=== PATIENT | female | born 1940 | race Caucasian/White ===

== ENCOUNTER 2016-06-15 19:15 | Inpatient (IN) | payer MEDICARE, MEDICAID ==
[~2016-06-15] VITALS: Ht 152.4 cm; Wt 74.3 kg
[~2016-06-15 19:15] MED LIST: AMOX-366 PO; HYDR-4003 PO; LISI10TA PO; METF500T7 PO; METO50TA3 PO; NAPR500T PO
[2016-06-15 19:24] VITALS: BP 132/73; PULSE 78; RESP 16; O2SAT 98
--- NOTE | 2016-06-15 21:43 | ED.REPORT ---
HPI-General Illness Date of Service Jun 15, 2016 ED Provider: Jarrod Barrera DO A 75 year old female with a history of hypertension, hyperthyroidism, osteoarthritis, right ureteral stent, diabetes, thyroid nodule, and pelvic cancer with hysterectomy among other medical concerns presents to the ED complaining of bleeding from the mouth. The pt drove to [place] today to see her oncologist. The bleeding began during the drive home and has continued since. She denies coughing up the blood, and states that she is spitting out saliva containing blood.The pt denies any pain. She has never experienced similar symptoms before. Nursing Notes Stated Complaint: BLEEDING FROM MOUTH Chief Complaint: General Complaint Nursing Notes Reviewed: Yes Allergies: Coded Allergies: No Known Allergies (Verified Allergy, Unknown, 06/15/16) Scheduled Amoxicillin/Clav K 875-125 mg (Augmentin 875-125 mg) 1 Each Tablet 1 TABLET PO BID Lisinopril (Lisinopril) 10 Mg Tablet 10 MG PO DAILY In Vietnamese please Metformin ER (Metformin ER) 500 Mg Tablet 500 MG PO DAILY Metoprolol Tartrate (Metoprolol Tartrate) 50 Mg Tablet 50 MG PO BID Scheduled PRN Hydrocodone-Acetaminophen 5-325 mg (Hydrocodone-Acetaminophen 5-325 mg) 1 Each Tablet 1 TABLET PO Q4H PRN PRN For Pain Naproxen (Naprosyn) 500 Mg Tablet 500 MG PO BID PRN PRN For Pain General Time Seen by MD: 21:42 Chief Complaint Other (Bleeding from mouth) Hx Obtained From: Patient, Daughter, Hospitality Job Titles Arrived By: Walk-in Sudden in Onset?: Yes Onset Occurred: 1 - 4 hours ago Symptom Duration: Since onset Recent Healthcare: Recent doctor visit, Recent hospitalization Similar Sx Previous: No Past Medical History Past Medical History Notes: PCP Dr. Franz Oncologist: Dr. Jillian Weber Past Medical History T2DM Thyroid nodule with hyperparathyroidism w/ parathyroid adenoma Hyperlipidemia HTN Osteoarthritis R hydroureter with right ureteral stent Constipation Hyperthyroid Reports: Hypertension Past Surgical History Reports: Hysterectomy Family History Noncontributory Smoking History Never Smoker Social History Alcohol Use: Denies alcohol use Other Social History: Good social support, Local resident Ambulatory Status Independent Review of Systems blood-streaked saliva Full Review of Systems Respiratory: Denies: Prod cough, bloody Cardiovascular: Denies: Chest pain GI: Denies: Abdominal pain, Nausea, Vomiting Musculoskeletal: Denies: Back pain, Neck pain Skin: Denies Rash Complete sys rev & neg: except as marked. Physical Exam Vital Signs Vital Signs Date Time Temp Pulse Resp B/P Pulse Ox O2 Delivery O2 Flow Rate FiO2 06/15/16 23:31 66 16 175/70 95 Room Air 06/15/16 19:24 36.0 78 16 132/73 98 Room Air Initial VS: Reviewed General/Constitutional: Awake, Alert blood-streaked saliva Head / Eyes: Atraumatic, Normocephalic, PERRL, EOMI ENT: Atraumatic, Airway patent, Mucous membranes moist Neck: Atraumatic, Supple, Full range of motion Respiratory / Chest: Atraumatic, Breath sounds NL, Breath sounds = bilat, No respiratory distress Cardiovascular: Heart rate NL, Regular rhythm, Heart sounds NL Abdomen: Atraumatic, Soft, Non-tender Back: Atraumatic, Full range of motion Upper Extremities Upper Extremity / MS: Atraumatic, Full range of motion Lower Extremity / Pelvis / MS: Atraumatic, Full range of motion Skin: Atraumatic, Color NL, No rash, Warm, Dry Neurologic: Oriented X3, Speech NL, No motor deficits, No sensory deficits Psychiatric: Affect NL, Mood NL Interpretation & Diagnostics Interpretation & Diagnostics: CT Pulmonary Angiogram: CONCLUSION: No CT evidence of pulmonary emboli. Enlarged left lobe of the thyroid gland which may be due to a goiter. There however is a mass in the superior mediastinum or adjacent lung and evidence for multiple masses in the liver worrisome for metastatic disease. Lab Results Interpretation Result Diagram: 06/15/16224206/15/163 Test 06/15/16 22:30 06/15/16 22:32 06/15/16 22:43 Hold [place] Top Tube Received (Received) Prothrombin Time 10.7sec (8.1-12.5) Prothromb Time International Ratio 1.00ratio D-Dimer 3.5mg/L (<0.50) White Blood Count 6.5th/mm3 (3.8-10.1) Red Blood Count 3.71mil/mm3 (3.90-5.20) Hemoglobin 8.2g/dL (12.0-15.6) Hematocrit 27.5% (35.0-46.0) Mean Corpuscular Volume 74.1fL (81-100) Mean Corpuscular Hemoglobin 22.1pg (27.0-35.0) Mean Corpuscular Hemoglobin Concent 29.8% (32.0-37.0) Red Cell Distribution Width 16.5% (12.3-15.4) Platelet Count 531bil/L (150-400) Neutrophils (%) (Auto) 58.6% (40-74) Lymphocytes (%) (Auto) 26.4% (14-46) Monocytes (%) (Auto) 11.9% (4-12) Eosinophils (%) (Auto) 2.2% (0-5) Basophils (%) (Auto) 0.6% (0-3) Sodium Level 132mEq/L (134-144) Potassium Level 3.6mEq/L (3.5-5.2) Chloride Level 94mEq/L (97-108) Carbon Dioxide Level 25mmol/L (18-29) Blood Urea Nitrogen 20mg/dL (8-27) Creatinine 0.89mg/dL (0.57-1.00) Estimat Glomerular Filtration Rate 88mL/min (>59) Glucose Level 132mg/dL (60-99) Calcium Level 11.5mg/dL (8.5-10.1) Total Bilirubin 0.4mg/dL (0.0-1.2) Aspartate Amino Transf (AST/SGOT) 24U/L (0-50) Alanine Aminotransferase (ALT/SGPT) 16U/L (0-32) Alkaline Phosphatase 231U/L (25-165) Total Protein 6.7g/dL (6.4-8.4) Albumin 3.1g/dL (3.4-5.0) Pulse Oximetry Interpretation Pulse Oximetry Interpretation: 98% on room air Pulse Oximetry: Pulse Ox normal X-Ray Chest Interpretation Chest Xray Interpretation: no acute findings Interpretation / Wet Read by: Wet read ED physician Re-Eval/Medical Decision Med Decision/Clinical Course I spoke with Dr. Jillian Weber, patient's oncologist, and discussed CT results. Dr. Weber recommends transfer to the [facility] to complete workup of hemoptysis, liver mets, and mediastinal mass. Subsequently spoke to Dr. Marisela Lopez of transfer center and patient is denied transfer because of a lack of bed availability at . Admission to [facility] hospitalist service is recommended. Consulted with Dr. Florentino who agrees that the patient should be admitted for bronchoscopy. Dr. Leo admits. Source of Hx: Old records, Family Time of Eval: 01:15 Re-Evaluation/Progress Note: Pt rechecked, who is stable. She is informed of her CT results and oncology consultation, as well as the need for transfer to . The pt understands and agrees with the plan. Time of Eval: 02:14 Patient Status: Condition improved Re-Evaluation/Progress Note: Pt rechecked, who is resting comfortably. She is informed of the plan for admission. The pt understands and agrees with the plan. All questions are addressed at this time. Consultation #1: Call Returned at: 01:00 Tuyere Fitter: Agrees with eval, Agrees with plan Note: Spoke with Dr. Jillian Weber, pt's oncologist, regarding pt's case. Dr. Weber recommends transfer to . Consultation #2: Call Returned at: 01:19 Tuyere Fitter: Agrees with eval, Agrees with plan, Accepts admit Note: Spoke with Transfer Center regarding pt's case. [facility] with review pt's case. Consultation #3: Call Returned at: 01:34 Tuyere Fitter: Agrees with eval, Agrees with plan Note: Spoke with Dr. Weber regarding pt's case. Dr. Weber recommends admission to hospitalist service of . Consultation #4: Call Returned at: 01:48 Tuyere Fitter: Agrees with eval, Agrees with plan Note: Spoke with Dr. Lopez regarding pt's case. There are no beds at , so Dr. Lopez recommends admission. Consultation #5: Referral / Consult Name: Kevin Leo MD Consulted With: Hospitalist Call Returned at: 02:02 Note: Spoke with Dr. Leo, hospitalist, regarding pt's case. Dr. Leo requests pulmonology consult. Consultation #6: Referral / Consult Name: Primitivo Florentino MD Consulted With: Recycle Driver Call Returned at: 02:08 Tuyere Fitter: Agrees with eval, Agrees with plan Note: Spoke with Dr. Florentino, food and beverage server, regarding pt's case. Dr. Paz agrees with the plan for admission. Counseled Regarding: Diagnosis, Lab results, Need for admission Discharge & Departure Primary Impression: Hemoptysis Additional Impression: Liver mass Disposition: ADMITTED TO HOSPITAL Discharge Condition All VS Reviewed: Yes Condition: Stable Referrals: Tony Franz MD (PCP) Ruben Attestation Portions of this note were transcribed by Lorrie Gr. I, Dr. Barrera personally performed the history, physical exam and medical decision-making; I reviewed and confirmed the accuracy of the information in the transcribed note. Signed by: Ruben Denis, 06/16/2016 and 0032. copies to: Tony Franz MD, Todd P DO Jun 15, 2016 21:42 Bladimir Nielson MD Jun 15, 2016 21:44 LORRIE GR Jun 15, 2016 22:52
[2016-06-15 22:49] LABS: BASOPHILS % (AUTO) 0.6 % (0-3); EOSINOPHILS % (AUTO) 2.2 % (0-5); MONOCYTES % (AUTO) 11.9 % (4-12); Mean Corpuscular Hemoglobin 22.1 pg (27.0-35.0); Mean Corpuscular Volume 74.1 fL (81-100); NEUTROPHILS % (AUTO) 58.6 % (40-74); Platelet Count 531 bil/L (150-400)
[2016-06-15 23:31] VITALS: BP 175/70; PULSE 66; RESP 16; O2SAT 95
[2016-06-16] VITALS (14 sets, daily range): BP systolic 141–208; BP diastolic 63–79; PULSE 68–93; RESP 16–20; O2SAT 94–97
[2016-06-16] MEDS ORDERED: Sodium Chloride LOK Flush 10 mL Syringe IVFLUSH SCH (00:30)
[2016-06-16] MEDS ORDERED: Polyethylene Glycol (PEG) 17 Gm Powder PO PRN (02:55)
[2016-06-16] MEDS ORDERED: Ondansetron 2 mg/mL 2 mL Inj IVPUSH PRN (02:55)
[2016-06-16] MEDS ORDERED: Alum-Mag Hydrox-Simeth 30 mL Suspension PO PRN (02:55)
[2016-06-16] MEDS ORDERED: Glucose 40% Oral Gel 15 Gm Tube PO PRN (04:00)
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
[2016-06-16] MEDS: Sodium Chloride LOK Flush 10 mL Syringe IVFLUSH SCH ×3 (05:11→16:30)
[2016-06-16 06:22] LABS: APPEARANCE,URINE HAZY (CLEAR,HAZY); COLOR,URINE STRAW (YELLOW); OCCULT BLOOD,URINE LARGE (NEGATIVE)
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
[2016-06-16] MEDS: Insulin LISPRO 300 Unit/3 mL Inj SUBQ SCH ×4 (08:00→22:00)
[2016-06-16 08:49] LABS: Mean Corpuscular Volume 74.4 fL (81-100)
[2016-06-16 09:16] LABS: Unsaturated Iron Binding 380.1 ug/dL
[2016-06-16] MEDS: Diltiazem CD 180 mg ER24 Capsule PO SCH (09:43)
[2016-06-16] MEDS: 0.9% Sodium Chloride 1,000 ML IV SCH ×2 (09:55→18:20)
--- NOTE | 2016-06-16 09:55 | DRSVH ---
PROCEDURE: X-RAY CHEST, TWO VIEWS ([id number]) INDICATIONS: hemoptysis TECHNIQUE: 2 views of the chest were acquired. COMPARISON: [facility], CR, XR CHEST 1VW (PORTABLE), 04/01/2016, 19:52. [facility], CR, XR CHEST 1VW (PORTABLE), 01/28/2016, 21:30. [facility], CR, CHEST 2VW, 12/23, 13:32. FINDINGS: Surgical changes and devices: None. Lungs and pleura: No pleural effusions or pneumothorax. Lungs are clear. Mediastinum: Mediastinal contours are normal. Heart size is normal. There is left paratracheal sof t tissue opacity unchanged from prior examination with contralateral deviation of the trachea in this patient with known enlarged left thyroid gland. Bones and chest wall: No suspicious bony abnormalities. Soft tissues appear unremarkable. Mild S-s haped curvature. IMPRESSION: No acute cardiopulmonary disease. Significant rightward deviation of the trachea, previ ously documented, due to large left thyroid mass like structure previously identified by CT, and ultr asound scanning. Reportedly this has been previously biopsied. Dictated by: Messi ALEGRE Interpreted: Vadim Connelly MD on 06/16/2016 at 9:54 Transcribed by: ALAYNA on 06/16/2016 at 9:55 Approved by: Vadim Connelly M.D. on 06/16/2016 at 16:16
--- NOTE | 2016-06-16 10:34 | DRSVH ---
PROCEDURE: CT ANGIO CHEST PULMONARY EMBOLISM ([id number]) INDICATIONS: hemoptysis, elevated ddimer TECHNIQUE: After the administration of intravenous contrast, 2 mm thick sections acquired from the pulmonary api vi to the posterior costophrenic angles. 3-dimensional maximum intensity projection (MIP) coronal a nd sagittal reformats were then acquired through the thorax. For radiation dose reduction, the follo wing was used: automated exposure control, adjustment of mA and/or kV according to patient size. COMPARISON: [facility], CT, CHEST WITH CONTRAST, 05/06/2008, 17:16. [facility], CT, CT ABD PELVIS W CON, 01/28/2016, 22:04. FINDINGS: Image quality: Excellent. Pulmonary arteries: Pulmonary arteries are normal in size, and demonstrate no intraluminal filling d efects to suggest central pulmonary embolism. Lungs and pleura: There is mild scarring at the right apex unchanged from the prior study. No acute a irspace opacities. No pleural effusion or pneumothorax. There is mild atelectasis at the right lung b ase. Mediastinum: Heart size is normal, without pericardial effusion. No mediastinal or hilar adenopathy . Thoracic aorta is normal in caliber and enhancement. A low density cystic lesion is present superi or to the aortic arch slightly decreased in size when compared with the study dated 05/06/08. Esophagu s is normal in caliber, without hiatal hernia. Bones and chest wall: No suspicious bony lesions. Ribs and thoracic spine appear intact throughout. The left thyroid gland is markedly enlarged. This is increased in size when compared with the thyroi d gland enlargement from 05/06/08. No axillary or supraclavicular adenopathy. Abdomen: The liver has a heterogeneous appearance with findings suspicious for multiple ill-defined m ass lesions. These findings are new when compared with the prior abdominal CT dated 01/28/16. IMPRESSION: 1. No acute pulmonary embolus. 2. Markedly enlarged left thyroid lobe, increased in size when compared with the prior study dated 04/01. 3. Stable superior mediastinal cyst. 4. Findings suspicious for multiple hepatic lesions which are new when compared with the study dated 01/28/16. Multiphase hepatic protocol CT is recommended to further characterize findings. Note: [facility] and the final report are concordant. Dictated by: Nayla Lundberg M.D. on 06/16/2016 at 10:24 Approved by: Nayla Lundberg M.D. on 06/16/2016 at 10:33
[2016-06-16] MEDS ORDERED: fentaNYL-PF 50 mCg/mL 2 mL Inj IVPUSH PRN (14:55)
--- NOTE | 2016-06-16 17:22 | PCM.PNMED ---
Subjective Date of Service Jun 16, 2016 Exam Vital Signs Vital Sign - Last Date Time Temp Pulse Resp B/P Pulse Ox O2 Delivery O2 Flow Rate FiO2 06/16/16 13:48 36.8 78 18 141/63 94 Room Air Intake and Output 06/15/16 06/15/16 06/16/16 Cumulative From/Thru 15:00 23:00 07:00 06/15/16 19:24 - 06/16/16 06:39 Intake Total 0 ml 0 ml Output Total 600 ml 600 ml Balance -600 ml -600 ml Intake Oral 0 ml 0 ml Output Urine Total 600 ml 600 ml # Bowel Movements 0 0 Lab and Diagnostics Result Diagram: 06/16/16 1645 06/16/16 0820 X-Rays, CTs and MRIs assembler 1st shift radiology read of the CT pulmonary angiography demonstrates: No CT evidence of pulmonary emboli. Enlarged left lobe of the thyroid gland which may be due to goiter. Mass in the superior mediastinum or adjacent lung and evidence of multiple masses in the liver worrisome for metastatic disease. 12-lead ECG Not performed this visit Assessment & Plan Pt was seen and examined. I agree with the admitting physicians assessment and plan of care as detailed below. Will see pt again in AM. 75-year-old obese female with significant ovarian cancer history (being actively followed by a Dr. Weber at ), hypertension who presents with an approximately 12 hour history of what is described as coughing up blood. # Hemoptysis, acute. Present on admission -Concerning for metastatic disease to the lungs versus primary lung source -NPO for now given plan to bronch -Plan is to proceed with bronchoscopy later today (patient is okay with intubation for the purposes of bronchoscopy)-INR 1.00, and platelets 531 * ER physician discussed case with patient's oncologist and [facility], and recommend attempt to transfer to should any complication occur during or after bronchoscopy -Given her drop in hemoglobin, she is receiving blood, and we will continue to follow those labs closely -Aside for malignancy, differential includes: Vasculitic process, AVM, mucosal tear secondary to trauma (patient does not note any significant history of cough or retch making this much less likely). PE ruled out on CT. -We will check QuantiFERON gold -We will hold her aspirin # Microcytic anemia, presents since December 2015 per review of our record. Present on admission -Microcytic nature may suggest deficiency of some kind versus slow chronic bleed -Transfusion as noted above, and we will follow labs closely -We will add an iron panel # Hypertension, acute on chronic. Present on admission -Perhaps related to stress of being in the hospital. -Likely made worse by her missing her medication doses yesterday -One-time dose of Enalaprilat 1.25mg IV given her elevated pressures. -We will continue her antihypertensives (diltiazem and lisinopril) -Continue to monitor vital signs closely # Incidental findings of upper mediastinal and multiple liver masslike abnormalities. Noted inpatient with significant reported radiation exposure, and significant history of cancer -These are concerning for metastatic disease versus potential primary source -Manage initially as noted above -We will check a serum AFP and hepatitis B core antibody -Consideration for checking a CEA (could be elevated in ovarian and/or lung cancer) -Please note, patient does have history of large left sided parathyroid adenoma which could potentially be what we are seeing on imaging -Also consideration for paraneoplastic syndrome given her elevated calcium ( though this is more likely related to her hyperparathyroidism) # Elevated alkaline phosphatase of unknown chronicity. Present on admission -Could be an indication of liver or bone metastases (please note the bony metastases were not reported on CT) -We will check a GGT # Mild hyponatremia and hypochloremia of unknown chronicity. 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 Weber Diabetes mellitus type II with diagnosis in 2008, not on insulin-we will hold metformin while she is hospitalized, and will add corrective insulin Paroxysmal A. fib, rate controlled-we will continue diltiazem Hyperparathyroidism with chronic hypercalcemia Left thyroid nodule/parathyroid adenoma History of falls-PT eval Obesity Hyperlipidemia PRN MEDICATIONS - Acetaminophen as needed for mild pain/fever/headache - Bowel regimen as needed - Antiemetic as needed Patient is admitted under inpatient status with expected length of stay greater than 2 midnights due to severity of presenting symptoms, risk of adverse event, and complexity of treatment plan. GI Prophylaxis: Not indicated VTE Mechanical Devices: Intermittant Pneumatic CD Resuscitation Status: Limited Interventions (no compressions or defibrillation. Patient okay with intubation for procedures.) Maeve Hicks DO Jun 16, 2016 17:22 Solomon Pérez MD Jun 17, 2016 13:36
[2016-06-16] MEDS: Pantoprazole 4 mg/mL 10 mL Inj IVPUSH SCH (18:21)
[2016-06-16] MEDS ORDERED: 0.9% Sodium Chloride 250 ML IV SCH (18:40)
--- NOTE | 2016-06-16 18:51 | CONS ---
[address] [address] CONSULTATION REPORT PATIENT: REJI VAZQUEZ : 1940 MR#: [id number] ADMIT: 06/16/2016 JOB ID: [id number] DATE OF SERVICE: 06/16/2016 INITIAL PULMONARY CONSULTATION NOTE: The patient is a 75-year-old woman seen in consultation at the request of Dr. Pérez for her hemoptysis. HISTORY OF PRESENT ILLNESS: We spoke to the patient with the assistance of family medicine physician, Dr. Maeve Hicks, who speaks the same language since an commercial lines account manager was not immediately available. The patient is a 75-year-old woman with a recently diagnosed right-sided ovarian cancer status post total abdominal hysterectomy and bilateral salpingo-oophorectomy with rectosigmoid resection done by the FEATHER SEPARATOR/ONC service at the [facility] on January 20, 2016. This was complicated by a postoperative infection in early January for which she had some form of debridement and IV antibiotic therapy. According to the patient and her daughter there was no additional radiation or chemotherapy administered, but the patient has had regular followup with FEATHER SEPARATOR/ONC at [facility]. She had an appointment with her oncologist yesterday at [facility] and on the way back from [place] felt a sudden metallic taste in her mouth and then proceeded to split something into a tissue. There was a small streak of pinkish-tinged spit in there. This happened one more time on the drive to [place] and she was anxious enough that she came into the emergency department at [facility]. Please note that she denies repeatedly "coughing up blood" and says she felt something in her mouth and only spat a dot of blood or so into a tissue. There were no clots, no bright red blood, no liquid blood. This happened a 3rd time while she was in the emergency department but has not recurred again since yesterday night from the emergency department, and all day today she has been completely fine. In fact, she denies any cough, shortness of breath, chest pain, palpitations. She denies any weight gain or weight loss, fevers, chills, sweats. She has been feeling more tired for the last six weeks. She denies any blood in her stools, vomiting blood, acid reflux, or heartburn. She does take aspirin 325 every other day. She has Naprosyn on her medication list but denies taking this for a while now because she has not had any joint pain. Her hemoglobin of note is down to 8.5 on this admission compared to 12 in January and it appears to slowly drift down. Similarly her MCV has gone down from 91 to 74 and over the last few months. PAST MEDICAL HISTORY: 1. Right-sided adenocarcinoma of the ovary diagnosed in 2016 status post total abdominal hysterectomy with bilateral salpingo-oophorectomy, lymph node dissection, and rectosigmoid dissection in December 2015 at the [facility] by gynecology/oncology. 2. Type 2 diabetes. 3. Paroxysmal atrial fibrillation. 4. Hypertension. 5. Hyperlipidemia. SOCIAL HISTORY: Never smoker. She is Chinese-speaking and has multiple family members are present at the bedside, primarily her daughter, granddaughter, and [id number]. REVIEW OF SYSTEMS: A 10-point review of systems is as in HPI and remaining is completely negative. PHYSICAL EXAMINATION: Vital signs reviewed. Temperature 36.8, pulse 78, respirations 18, BP 141/63, sats 94% on room air. General: Elderly woman sitting in bed, appears comfortable. Alert and oriented. Neck: No cervical lymphadenopathy. HEENT: Oral mucosa was examined in detail with the patient's dentures removed and I did not see any site of bleeding, epistaxis. Neck: No cervical lymphadenopathy. Chest: Clear to auscultation bilaterally. No wheezes or crackles. Heart: Regular rate, rhythm. No murmurs. Abdomen: Soft, nontender. No organomegaly. Extremities: No cyanosis, clubbing, or edema. Skin: No rashes. LABORATORY: Reviewed and notable for hemoglobin down to 8 from previous hemoglobin as high as 12.6 in December and 9.5 in January also of note, MCV is down significantly to 74 from 91 in December. IMAGING: Imaging of the chest: CT angiography shows no PE. There is a significantly enlarged left thyroid lobe that is slightly increased in size compared to April 2008, which the patient is aware of. Possibility of multiple hepatic lesions according to the radiologist's report; these are concerning for metastatic disease. There is an area in the right apex with atelectasis/scarring that is also relatively unchanged compared to 2008. Overall there are really no new findings in the lungs compared to 2009 that would explain or be associated with hemoptysis and I see no evidence of endobronchial tumor or obstruction. ASSESSMENT: 1. Spitting up blood-please note the patient is not having hemoptysis. 2. Anemia-microcytic. 3. Known right-sided adenocarcinoma of the ovary status post resection in December 2015. RECOMMENDATIONS: I am also concerned that this patient is having a GI bleed. There also appears to be a question of hepatic metastases. We do not have any records yet from the [facility] and I have requested these. Please note that the patient's history really does not suggest hemoptysis and in fact does not even suggest a GI bleed based on her symptoms alone. I am more concerned about the hemoglobin dropping to 8 from 12 over the course of 4-5 months with the new microcytosis. This is more concerning for a GI source of bleeding. One cannot lose this much blood through the lungs without showing a clear manifestation on chest CT or having symptoms such as hypoxemia, shortness of breath. Hemorrhage in the lungs would result in from oxygenation issues well before you could see a drop in hemoglobin. I did recommend to the primary team that they communicate with GI. Since this does not appear to be an acute bleed we do have the option of pursuing an outpatient workup, but I would defer that to the performance improvement director ironworker helper shop. I did recommend getting a stool guaiac and putting the patient on a PPI and stopping her aspirin in the meantime. I am going to sign off at this point. I have no additional recommendations unless the patient starts having any pulmonary symptoms of concern. Please contact me if that happens.
--- NOTE | 2016-06-16 20:12 | PCM.CHPMED ---
Subjective Date of Service: Jun 16, 2016 Primary Physician: Admitting Physician: Kevin Leo MD Primary Care Physician: Tony Franz MD Attending Physician: Kevin Leo MD Chief Complaint: Chief Complaint: Blood in saliva History of Present Illness: This is a 75 year old female with past medical history significant for right sided ovarian cancer s/p ANOOP-BSO in 12/2015 (stage IIa), diabetes mellitus type 2 , paroxysmal afib on aspirin, hypertension, hyperlipidemia who presented on 06/16 for blood in saliva. The patient is a Jordanian speaker and was interviewed with the help of a resident physician who is a eastern cherokee speaker of Jordanian. The patient was in normal state of health until yesterday when she had three episodes of blood in saliva that they report as a "handful." She also has associated fatigue but otherwise is asymptomatic. On arrival to the ED the patient had a hemoglobin of 8.2. The last hemoglobin checked several hours ago showed a level of 8.5. A CT Angio of chest showed no PE. It did show enlarged thyroid lobe, mediastinal cyst, and findings suspicious of multiple hepatic lesions which are new compared to study on 2015. The patient currently states that she is feeling well. She denies any additional episodes of hemoptysis. She states she does have constipation but this is chronic. She also has chronic shortness of breath that is unchanged from baseline. She denies any melena, hematochezia, hematemesis, chest pain or pressure. Review of Systems: Review of systems negative other than reported above. PMH Past Medical History Ovarian cancer, right side. ANOOP-BSO in 12/2015 (lymph node negative, stage IIa) Diabetes mellitus type II Paroxysmal afib on aspirin. Hyperparathyroidism with chronic hypercalcemia dx in 2008 and patient declined surgical removal. Left thyroid nodule/parathyroid adenoma first noted on CT. Patient declined surgical intervention. Lichen planus Osteoarthritis Obesity with BMI of 32. Hyperlipidemia Hypertension Right ureteral stent due to right hydroureter Chronic constipation Patient has never had a colonoscopy or EGD. Bedside Blood Glucose: 103 Surgical History Hysterectomy Appendectomy ANOOP-BSO in 12/2015 Home Medications Aspirin 325mg daily. Clonidine .1mg qd. Metformin ER 500mg BID Allergies: Coded Allergies: No Known Allergies (Verified Allergy, Unknown, 06/15/16) Family History Family History Denies any family history of gastrointestinal cancer. Social History Hx Alcohol Use: NoHx Substance Use: NoHx Tobacco Use: No Smoking Status: Never Smoker Living Arrangement: Alone (she lives alone locally with lots of social/family support (daughter reports that she has caregivers of one kind or another in her home at all times)) Exam Vital Signs Vital Sign - Last Date Time Temp Pulse Resp B/P Pulse Ox O2 Delivery O2 Flow Rate FiO2 06/16/16 13:48 36.8 78 18 141/63 94 Room Air Intake and Output 06/15/16 06/15/16 06/16/16 Cumulative From/Thru 15:00 23:00 07:00 06/15/16 19:24 - 06/16/16 06:39 Intake Total 0 ml 0 ml Output Total 600 ml 600 ml Balance -600 ml -600 ml Intake Oral 0 ml 0 ml Output Urine Total 600 ml 600 ml # Bowel Movements 0 0 General: Alert, No Acute Distress Head: Normal Eyes: PERRLA, EOMI, Scleral Anicteric Mouth: Mucous Membranes Dry Neck: Supple Chest & Lungs: Clear to auscultation & percussion Cardiovascular: Exam Unremarkable Abdomen: Tender (midepigastric pain), Non-distended, No masses, No hepatosplenomegaly, Normoactive bowel tones, Soft Musculoskeletal: Unremarkable Extremities: No cyanosis/clubbing/edma bilat Neurological: Grossly Neurologically Intact Lab and Diagnostics Result Diagram: 06/16/16 0820 06/16/16 0820 X-Rays, CTs and MRIs CT Angio Chest 06/15/2016: IMPRESSION: 1. No acute pulmonary embolus. 2. Markedly enlarged left thyroid lobe, increased in size when compared with the prior study dated 05/06/08. 3. Stable superior mediastinal cyst. 4. Findings suspicious for multiple hepatic lesions which are new when compared with the study dated 01/28/16. Multiphase hepatic protocol CT is recommended to further characterize findings. Note: The preliminary [facility] interpretation and the final report are concordant. Dictated by: Nayla Lundberg M.D. on 06/16/2016 at 10:24 Chest x-ray 06/15/2016: IMPRESSION: No acute cardiopulmonary disease. Significant rightward deviation of the trachea, previously documented, due to large left thyroid mass like structure previously identified by CT, and ultrasound scanning. Reportedly this has been previously biopsied. Dictated by: Messi ALEGRE Interpreted: Vadim Connelly MD on 06/16/2016 at 9: 54 Assessment & Plan Assessment This is a 75-year-old female with past medical history significant for stage IIa ovarian cancer with total abdominal hysterectomy and bilateral salpingo- oophorectomy in December 2015 who presents with blood in her saliva. On CT angiogram the patient was found to have multiple hepatic lesions that are new compared to the other study completed on 01/28/2016. These are likely metastases to the liver. The patient's blood in the saliva may be due to a gastrointestinal bleed. Her hemoglobin is currently stable. She is on aspirin 325 mg daily and does have midepigastric pain so a bleeding ulcer is possible. We recommend trending the patient's hemoglobin and hematocrit and start the patient on a proton pump inhibitor. We also recommend a fecal occult blood tests. If fecal occult blood test is negative and hemoglobin is stable patient can get endoscopy as an outpatient early next week. If patient has unstable hemoglobin recommend contacting the on-call doctor for gastroenterology. Alternatively if patient needs nonemergent endoscopy and is still present on Sunday we could consider endoscopy early next week. Anemia: -Possible GI pathology. Recommend trending hemoglobins and hematocrits -If the hemoglobin drops would consider urgent endoscopy. Dr. Murillo will be on- call this weekend for gastroenterology team. -Start patient on proton pump inhibitor -Recommend fecal occult blood test. Multiple hepatic lesions: -Recommend outpatient follow-up. Problems: Pain Evaluation: Adequate Pain Control GI Prophylaxis: Not indicated VTE Prophylaxis Indicated: Contraindicated (hemoptysis) VTE Mechanical Devices: Intermittant Pneumatic CD Resuscitation Status: Limited Interventions (no compressions or defibrillation. Patient okay with intubation for procedures.) Bladimir Wong DO Jun 16, 2016 17:08
[2016-06-17] MEDS: Sodium Chloride LOK Flush 10 mL Syringe IVFLUSH SCH ×2 (00:29→09:32)
[2016-06-17] MEDS: 0.9% Sodium Chloride 1,000 ML IV SCH ×2 (01:50→11:10)
[2016-06-17 01:52] VITALS: BP 167/72; PULSE 66; RESP 16
[2016-06-17 01:57] VITALS: BP 167/72; PULSE 63; RESP 16; O2SAT 94
[2016-06-17 02:10] LABS: Gamma Glutamyl Transpeptidase 205 IU/L (0-60)
[2016-06-17 03:08] LABS: Hepatitis A Antibody IgM Negative (Negative); Hepatitis B Core Antibody IgM Negative (Negative)
[2016-06-17 04:02] LABS: BASOPHILS % (AUTO) 0.6 % (0-3); EOSINOPHILS % (AUTO) 2.9 % (0-5); MONOCYTES % (AUTO) 11.1 % (4-12); Mean Corpuscular Volume 72.9 fL (81-100); NEUTROPHILS % (AUTO) 60.2 % (40-74); Platelet Count 493 bil/L (150-400)
[2016-06-17 04:17] LABS: INR 1.04 ratio
[2016-06-17 04:25] LABS: Magnesium 1.6 mg/dL (1.6-2.6); Phosphorus 2.8 mg/dL (2.5-4.9)
[2016-06-17 04:26] VITALS: BP 176/75; PULSE 61; RESP 16; O2SAT 94
--- NOTE | 2016-06-17 04:47 | NUR ---
H&H/Activity Pt received 1 unit PRBC's per order. Procedure and consent discussed via Ghanaian confectionery drops machine operator and family members. Patient verbalized understanding. Temp increased 1 degree to 37.3 during administration, notified, no new orders. Post-transfusion VSS, temp 37. Pt up to BR with 1PA, using call light for needs. No further hemoptysis observed, post-transfusion H/H 8.9/28.2.
[2016-06-17 05:08] LABS: Hemoglobin A1C 6.7 % (4.8-5.6)
[2016-06-17 05:32] VITALS: PULSE 62
[2016-06-17 09:13] VITALS: PULSE 64
[2016-06-17] MEDS: Insulin LISPRO 300 Unit/3 mL Inj SUBQ SCH ×2 (09:28→12:29)
[2016-06-17] MEDS: Pantoprazole 4 mg/mL 10 mL Inj IVPUSH SCH (09:31)
[2016-06-17] MEDS: Diltiazem CD 180 mg ER24 Capsule PO SCH (09:32)
[2016-06-17 09:43] VITALS: BP 172/70; PULSE 67; RESP 16; O2SAT 94
--- NOTE | 2016-06-17 11:43 | PCM.DIMED ---
Discharge Instructions Date of Service Jun 17, 2016 Dates of Hospitalization Jun 16, 2016 at 02:44 Discharge Diagnosis Discharge Diagnosis probable minor episode of hematemesis, unclear origin Medication Instructions Please hold aspirin and Naproxen for now until we get clear pictures. Diet No restrictions Activity No restrictions Call your provider Other (black, bloody stools, dizziness, belly pain) Patient Instructions You were hospitalized with concern for bleeding in your lungs or GI tract. However, you didn't have any signs of active bleeding, red blood cells remained stable. Please note that you are arranged for endoscopy procedure on next Sunday with . Please return for the procedure. Please note that you were arranged for appointment with new oncologist in next week, . Plan was discussed in details via hourly sign language interpreter. It is very important to follow up with oncologist given new findings in your liver, potentially cancer, which needs tissue confirmation by biopsy. Follow-up plan Please follow up with your primary doctor in 2weeks Follow-up Provider: Tony Franz MD Follow-up with PCP in: 2 weeks Provider: Cipriano Murillo MD Follow-up in: 1 week Luis Reid MD Jun 17, 2016 11:42
--- NOTE | 2016-06-17 12:40 | NUR ---
Social Work-initial assessment/ discharge: Data:See initial assessment. Pt is a 75 y/o female who was admitted on 06/16/16 for anemia per H&P. Pt's insurance is [employer] and PCP is Tony Franz MD. EMR reviewed. Pt's readmission score is 4-high risk. SW met with pt and daughter at bedside to discuss discharge planning, SW role explained. Pt is alert and oriented x3. Pt is medically stable to discharge home today. Pt resides at home where she remains independent with ADLs. Pt's daughter is [employer] caregiver and her CM is Aissatou Messina, updated clinicals faxed. Pt uses a fww at baseline and does not drive. Pt has had HH, but no SNF. Pt has no senior living care insurance or VA benefits. SW discussed DPOA/advanced directive, they have not completed this and not interested in information. Per RN notes, pt has been up independent in her room. SW provided phone number and plan. Daughter declining any HH needs. No anticipated discharge needs. All updated and agreeable to plan. Assessment:Pt who has [employer]NA[employer] caregivers at home. Plan:Pt to discharge home today via POV. Pt's daughter to continue caregiving at home. No anticipated discharge needs. All updated and agreeable to plan. GERMAN Medina Addendum: 06/17/16 at 1245 by ED VILLAFUERTE SS Amended: Links added.
--- NOTE | 2016-06-17 15:28 | NUR ---
Discharge Patient discharge to home with all belongings at 1350. Explained to patient and daughter when next medications are due and discharge instructions. Patient and daughter verbalized understanding. Dc'd IV intact. Dc'd telemetry. vitals stable. Patient left floor via wheelchair accompanied by daughter and THREE KNIFE TRIMMER with no signs of distress.
--- NOTE | 2016-06-17 16:36 | PCM.DC.MED ---
Discharge Summary Date of Service Jun 17, 2016 Dates of Hospitalization Date of Hospital Admission Jun 16, 2016 at 02:44 Date of Discharge: Jun 17, 2016 Providers: Admitting Physician: Kevin Leo MD Primary Care Physician: Tony Franz MD Attending Physician: Kevin Leo MD Diagnosis at Time of Discharge Diagnosis at Time of Discharge probable minor episode of hematemesis, unclear origin newly found multiple hepatic lesions Consultations Gastroenterology Pulmonary Procedures XRay, CTs & MRIs PROCEDURE: X-RAY CHEST, TWO VIEWS ([id number]) INDICATIONS: hemoptysis TECHNIQUE: 2 views of the chest were acquired. COMPARISON: [facility], CR, XR CHEST 1VW (PORTABLE), 04/01/2016, 19 :52. [facility], CR, XR CHEST 1VW (PORTABLE), 01/28/2016, 21:30. [facility], CR, CHEST 2VW, 12/23/2010, 13:32. FINDINGS: Surgical changes and devices: None. Lungs and pleura: No pleural effusions or pneumothorax. Lungs are clear. Mediastinum: Mediastinal contours are normal. Heart size is normal. There is left paratracheal soft tissue opacity unchanged from prior examination with contralateral deviation of the trachea in this patient with known enlarged left thyroid gland. Bones and chest wall: No suspicious bony abnormalities. Soft tissues appear unremarkable. Mild S-shaped curvature. IMPRESSION: No acute cardiopulmonary disease. Significant rightward deviation of the trachea, previously documented, due to large left thyroid mass like structure previously identified by CT, and ultrasound scanning. Reportedly this has been previously biopsied. Dictated by: Messi Duran [facility] Interpreted: Vadim Connelly MD on 06/16/2016 at 9: 54 Transcribed by: ALAYNA on 06/16/2016 at 9:55 Approved by: Vadim Connelly M.D. on 06/16/2016 at 16:16 PROCEDURE: CT ANGIO CHEST PULMONARY EMBOLISM ([id number]) INDICATIONS: hemoptysis, elevated ddimer TECHNIQUE: After the administration of intravenous contrast, 2 mm thick sections acquired from the pulmonary apices to the posterior costophrenic angles. 3-dimensional maximum intensity projection (MIP) coronal and sagittal reformats were then acquired through the thorax. For radiation dose reduction, the following was used: automated exposure control, adjustment of mA and/or kV according to patient size. COMPARISON: [facility], CT, CHEST WITH CONTRAST, 05/06/2008, 17: 16. [facility], CT, CT ABD PELVIS W CON, 01/28/2016, 22:04. FINDINGS: Image quality: Excellent. Pulmonary arteries: Pulmonary arteries are normal in size, and demonstrate no intraluminal filling defects to suggest central pulmonary embolism. Lungs and pleura: There is mild scarring at the right apex unchanged from the prior study. No acute airspace opacities. No pleural effusion or pneumothorax. There is mild atelectasis at the right lung base. Mediastinum: Heart size is normal, without pericardial effusion. No mediastinal or hilar adenopathy. Thoracic aorta is normal in caliber and enhancement. A low density cystic lesion is present superior to the aortic arch slightly decreased in size when compared with the study dated 05/06/08. Esophagus is normal in caliber, without hiatal hernia. Bones and chest wall: No suspicious bony lesions. Ribs and thoracic spine appear intact throughout. The left thyroid gland is markedly enlarged. This is increased in size when compared with the thyroid gland enlargement from . No axillary or supraclavicular adenopathy. Abdomen: The liver has a heterogeneous appearance with findings suspicious for multiple ill-defined mass lesions. These findings are new when compared with the prior abdominal CT dated 01/28/16. IMPRESSION: 1. No acute pulmonary embolus. 2. Markedly enlarged left thyroid lobe, increased in size when compared with the prior study dated 05/06/08. 3. Stable superior mediastinal cyst. 4. Findings suspicious for multiple hepatic lesions which are new when compared with the study dated 01/28/16. Multiphase hepatic protocol CT is recommended to further characterize findings. Note: [facility] and the final report are concordant. Dictated by: Nayla Lundberg M.D. on 06/16/2016 at 10:24 Approved by: Nayla Lundberg M.D. on 06/16/2016 at 10:33 Brief History HPI obtained by on 06/16 This is a 75 year old female with past medical history significant for right sided ovarian cancer s/p ANOOP-BSO in 12/2015 (stage IIa), diabetes mellitus type 2 , paroxysmal afib on aspirin, hypertension, hyperlipidemia who presented on 06/16 for blood in saliva. The patient is a Croatian speaker and was interviewed with the help of a resident physician who is a [place] of [place]ian. The patient was in normal state of health until yesterday when she had three episodes of blood in saliva that they report as a "handful." She also has associated fatigue but otherwise is asymptomatic. On arrival to the ED the patient had a hemoglobin of 8.2. The last hemoglobin checked several hours ago showed a level of 8.5. A CT Angio of chest showed no PE. It did show enlarged thyroid lobe, mediastinal cyst, and findings suspicious of multiple hepatic lesions which are new compared to study on 2015. The patient currently states that she is feeling well. She denies any additional episodes of hemoptysis. She states she does have constipation but this is chronic. She also has chronic shortness of breath that is unchanged from baseline. She denies any melena, hematochezia, hematemesis, chest pain or pressure. Hospital Course Acute problems patient was admitted with possible hemoptysis vs hematochezia, upon further evaluation, it's thought to be more of GI origin as per assessment as pt didn't show any respiratory symptoms, maintained Spo2 well. GI also was consulted, recommended serial monitoring of h/h, active signs of bleeding. Labs showed microcytic, hypochromic anemia, pt received 1unit of pRBC as hgb 7.6( admitted with 8.0) however, pt didn't develop any further episodes of bleeding during admission. Since CTA of chest showed new findings, concerning for metastatic dz, multiple hepatic lesions. at [facility] onc was consulted, stated that she did locally hysterectomy for stageII ovarian cancer, CA-125 has been stable. Further labs showed AFP is 30,000, which suspected primary liver malignancy. oncology was reached, recommended biopsy of the lesion, however given stable clinical picture, no symptoms related to presentation, biopsy not readily available during weekends. plan is to discharge her home with early referral to our oncology clinic in next week and also elective EGD/C- scope, which arranged by in next Sunday. This plan was discussed in details with patient and daughter via the Croatian speaking staff. chronic, stable problems Hypertension, Right-sided ovarian cancer with diagnosis 10/4/16 status post ANOOP-BSO in 12/2015 (lymph nodes negative, stage IIa)-her oncologist at [facility], Dr. Weber Diabetes mellitus type II with diagnosis in 2008, Paroxysmal A. fib, rate controlled, continued diltiazem, pt was asked to hold aspirin upon d/c in anticipation of biopsy in near future Hyperparathyroidism with chronic hypercalcemia Left thyroid nodule/parathyroid adenoma History of falls-PT eval Obesity Hyperlipidemia Cystic lesion in chest, CTA showed A low density cystic lesion is present superior to the aortic arch slightly decreased in size compared to prior one in 2008. Exam Vital Signs (Last) Date Time Temp Pulse Resp B/P Pulse Ox O2 Delivery O2 Flow Rate FiO2 06/17/16 09:43 36.4 67 16 172/70 94 Room Air Exam NAD, comfortably laying down on the bed no JVD, MMM, no LAD RRR, nl s1, s2 no mrg CTAB, no w,c S,ND,NT,normoactive BS+ warm, no edema, pulses 2/2 Test 06/15/16 22:30 06/15/16 22:32 06/16/16 04:54 06/16/16 08:20 Hold [place] Top Tube Received (Received) D-Dimer 3.5mg/L (<0.50) Urine Color Straw (YELLOW) Urine Appearance Hazy (CLEAR,HAZY) Urine pH 7.0 (5.0-8.0) Urine Specific [place]ell 1.010 (1.003-1.035) Urine Protein Negativemg/dL (NEG,TRACE) Urine Glucose (UA) Negativemg/dL (NEGATIVE) Urine Ketones Negativemg/dL (NEGATIVE) Urine Occult Blood Large (NEGATIVE) Urine Nitrite Negative (NEGATIVE) Urine Bilirubin Negative (NEGATIVE) Urine Urobilinogen 1.0mg/dL (NORMAL) Urine Leukocyte Esterase Trace (NEGATIVE) Urine RBC >50/hpf (0-2) Urine WBC 0-5/hpf (0-5) Urine Epithelial Cells Few/hpf (NONE-MOD) Urine Crystals None seen (NONE SEEN) Urine Bacteria Few/hpf (NONE-FEW) Urine Hyaline Casts None/lpf (NONE) Urine Granular Casts None seen (NONE SEEN) Urine Waxy Casts None seen (NONE SEEN) Urine Red Blood Cell Casts None seen (NONE SEEN) Urine White Blood Cell Casts None seen (NONE SEEN) Urine Mucus Present (None Seen) Urine Trichomonas None seen (NONE SEEN) Urine Yeast None (NONE SEEN) Urinalysis Comment None Urine Culture Reflexed Indicated Hold Urine Received (Received) Hemoglobin A1c 6.7% (4.8-5.6) Iron Level 19ug/dL (35-150) Total Iron Binding Capacity 399ug/dL (250-450) Percent Iron Saturation 5%sat (15-50) Unsaturated Iron Binding 380.1ug/dL Ferritin 40ng/mL (13-150) Gamma Glutamyl Transpeptidase 205IU/L (0-60) Tumor Marker Alpha Fetoprotein 05882.0ng/mL (0.0-8.3) Hepatitis A IgM Antibody Negative (Negative) Hepatitis B Surface Antigen Negative (Negative) Hepatitis B Core IgM Antibody Negative (Negative) Hepatitis C Antibody <0.1s/co ratio (0.0-0.9) Hepatitis C Comment Comment (.) Test 06/17/16 03:30 06/17/16 09:10 White Blood Count 6.5th/mm3 (3.8-10.1) Red Blood Count 3.87mil/mm3 (3.90-5.20) Mean Corpuscular Volume 72.9fL (81-100) Mean Corpuscular Hemoglobin 23.0pg (27.0-35.0) Mean Corpuscular Hemoglobin Concent 31.6% (32.0-37.0) Red Cell Distribution Width 17.3% (12.3-15.4) Platelet Count 493bil/L (150-400) Neutrophils (%) (Auto) 60.2% (40-74) Lymphocytes (%) (Auto) 25.2% (14-46) Monocytes (%) (Auto) 11.1% (4-12) Eosinophils (%) (Auto) 2.9% (0-5) Basophils (%) (Auto) 0.6% (0-3) Prothrombin Time 11.1sec (8.1-12.5) Prothromb Time International Ratio 1.04ratio Sodium Level 139mEq/L (134-144) Potassium Level 3.6mEq/L (3.5-5.2) Chloride Level 102mEq/L (97-108) Carbon Dioxide Level 26mmol/L (18-29) Blood Urea Nitrogen 13mg/dL (8-27) Creatinine 0.73mg/dL (0.57-1.00) Estimat Glomerular Filtration Rate 111mL/min (>59) Glucose Level 124mg/dL (60-99) Calcium Level 10.5mg/dL (8.5-10.1) Phosphorus Level 2.8mg/dL (2.5-4.9) Magnesium Level 1.6mg/dL (1.6-2.6) Total Bilirubin 0.5mg/dL (0.0-1.2) Aspartate Amino Transf (AST/SGOT) 21U/L (0-50) Alanine Aminotransferase (ALT/SGPT) 13U/L (0-32) Alkaline Phosphatase 201U/L (25-165) Total Protein 5.7g/dL (6.4-8.4) Albumin 2.9g/dL (3.4-5.0) Thyroid Stimulating Hormone (TSH) 0.522uIU/mL (0.450-4.500) Free Thyroxine 1.02ng/dL (0.82-1.77) Hemoglobin 9.1g/dL (12.0-15.6) Hematocrit 28.3% (35.0-46.0) Discharge Medications Discharge Medications Amoxicillin/Clav K 875-125 mg (Augmentin 875-125 mg) 1 Each Tablet 1 TABLET PO BID Prescribed by: TINO MACIAS MD Lisinopril (Lisinopril) 10 Mg Tablet 10 MG PO DAILY In [facility] please Prescribed by: EVELYN LEE MD Metformin ER (Metformin ER) 500 Mg Tablet 500 MG PO DAILY (Reported) Metoprolol Tartrate (Metoprolol Tartrate) 50 Mg Tablet 50 MG PO BID Prescribed by: EVELYN LEE MD As needed Hydrocodone-Acetaminophen 5-325 mg (Hydrocodone-Acetaminophen 5-325 mg) 1 Each Tablet 1 TABLET PO Q4H PRN PRN For Pain Prescribed by: TINO MACIAS MD Additional med instructions Please hold aspirin and Naproxen for now until we get clear pictures. Followup Plan Disposition: home Follow-up plan Please follow up with your primary doctor in 2weeks Discharge Diet: No restrictions Discharge Activity: No restrictions Patient Instructions You were hospitalized with concern for bleeding in your lungs or GI tract. However, you didn't have any signs of active bleeding, red blood cells remained stable. Please note that you are arranged for endoscopy procedure on next Sunday with . Please return for the procedure. Please note that you were arranged for appointment with new oncologist in next week, . Plan was discussed in details via healthcare interpreter. It is very important to follow up with oncologist given new findings in your liver, potentially cancer, which needs tissue confirmation by biopsy. Follow-up Provider: Tony Franz MD Follow-up with PCP in: 2 weeks Provider: Cipriano Murillo MD Follow-up in: 1 week Time spent 65min Luis Reid MD Jun 17, 2016 15:59
[2016-06-21] MEDS ORDERED: OMEP40CA36 PO (13:18)
[2016-06-21] MEDS ORDERED: METO50TA3 PO (13:18)
[2016-07-03] MEDS ORDERED: CLON0.1T PO (17:24)
[2016-07-03] MEDS ORDERED: ASPI325T32 PO (17:24)
[2016-07-03] MEDS ORDERED: DILT180C83 PO (17:24)
[2016-07-26] MEDS ORDERED: HYDR-4003 PO (11:11)
[2016-08-22] MEDS ORDERED: ASPI325T32 PO (09:45)
[2016-08-22] MEDS ORDERED: OMEP40CA36 PO (09:45)
== END 2016-06-17 13:50 | disposition home or self-care (01) | DRG 812 ==
LOC: SED 19:15 → MPC 06-16 02:44
PROVIDERS: ADMIT Hospitalist; ATTEND Hospitalist
PROC: 30233N1 Transfusion of Nonautologous Red Blood Cells into Peripheral Vein, Percutaneous Approach (ICD-10-PCS; principal; 2016-06-16)
DX: D64.9 Anemia, unspecified (principal); K92.0 Hematemesis; R04.2 Hemoptysis; E87.1 Hypo-osmolality and hyponatremia; C22.8 Malignant neoplasm of liver, primary, unspecified as to type; I10 Essential (primary) hypertension; I48.0 Paroxysmal atrial fibrillation; E03.9 Hypothyroidism, unspecified; E11.9 Type 2 diabetes mellitus without complications; M19.90 Unspecified osteoarthritis, unspecified site; E78.5 Hyperlipidemia, unspecified; Z91.81 History of falling; Z79.01 Long term (current) use of anticoagulants; Z85.43 Personal history of malignant neoplasm of ovary; Z79.82 Long term (current) use of aspirin

== ENCOUNTER 2016-06-20 14:48 | Day surgery (SDC) | payer MEDICARE, MEDICAID ==
[~2016-06-20] VITALS: Ht 152.4 cm; Wt 74.0 kg
[~2016-06-20 14:48] MED LIST changes: -NAPR500T PO; +Sodium Chloride LOK Flush 10 mL Syringe IV PRN; +fentaNYL-PF 50 mCg/mL 2 mL Inj IVPUSH PRN
[2016-06-20 16:55] VITALS: BP 147/66; PULSE 77; O2SAT 94
[2016-06-20] MEDS: 0.9% Sodium Chloride 1,000 ML IV PRN ×2 (17:22→17:53)
--- NOTE | 2016-06-20 17:57 | PCM.ENDEGD ---
EGD Date of Service: Jun 20, 2016 Physician Cipriano Murillo MD Pre Procedure Diagnosis: aNEMIA Post Procedure Dx & Findings: gASTRIC POLYPS AND ULCERATED GASTRIC MASS Procedure Esophagogastroduodenoscopy PROCEDURE IN DETAIL: The patient was placed in left lateral decubitus position. Bite block was placed. Scope lubricated, placed in posterior pharynx, passed through the cricopharyngeus and esophagus, slowly advanced the entire length of the gastric pouch, pylorus was identified, scope passed through the pylorus and descending portion of duodenum, withdrawn in the antrum, retroflexed upon itself for view of fundus and cardia. Scope was then withdrawn through the oropharynx. The esophagus was unremarkable with normal Z line at the 37 cm.upon entering the stomach, there was multiple flat and pedunculatedas well as up to 1 cm fundic polyps.in the mid stomach, there was a 3-4 cm x 2 cm ulcerated mass that was continuously oozing small amount of blood. Biopsies were obtained at the periphery and also in the middle. Retroflexion was done. Stomach was easily inflatable and deflatable using air. Scope further advanced to the distal duodenum. Duodenum showed normal villous structures with normal folds. Impression Ulcerated gastric mass. Multiple biopsies obtained Multiple fundic polyps Recommendation Prilosec 40 twice a day Surgical consult Oncology consult Follow-up with primary care physician. Presedation Assessment Risks and Benefits Informed consent was obtained from the patient after all risks and benefits including but not limited to drug reaction, infection, pain, bleeding, perforation, as well as alternatives were discussed. Patient monitoring Continuous pulse oximetry, cardiac monitoring, blood pressure monitoring, IV access, and oxygen at 2L per nasal cannula. Periprocedural Fentanyl: Fentanyl 75mcg Incrementally Midazolam: Midazolam 3mg Incrementally Complications There were no periprocedural complications identified. Post Procedure Plan Post Procedure Recommendations 1. Restrict activities today. 2. Resume normal activities in the morning. 3. Resume medications. 4. GERD behavioral modification: - Avoid fatty, acidic, spicy, large meals - Do not lie down after meals - Do not eat or drink anything for at least 2 1/2 hours before going to bed at night - Discontinue tobacco and alcohol - Decrease or avoid caffeine - Avoid chocolate and mints - Decrease weight - Avoid aspirin and non steroidal anti-inflammatory agents (NSAID) such as Aleve, Advil, Mobic, Naproxen, Ibuprofen, etc 5. Add proton pump inhibitor. Take 30 minutes before 1st meal of the day. 6. Patient informed of normal post procedure side effects as bloating, drowsiness, blood streaking in the stool 7. If gastric biopsy reveal H.pylori, continue with appropriate treatment 8. If small bowel biopsy reveals celiac, continue with appropriate treatment 9. Please don't hesitate to call me with any questions Cipriano Murillo MD Jun 20, 2016 17:57
[2016-06-20 18:04] VITALS: BP 146/71; PULSE 67; RESP 16; O2SAT 96
[2016-06-20 18:14] VITALS: BP 154/70; PULSE 64; RESP 14; O2SAT 95
[2016-06-20 18:23] VITALS: BP 157/74; PULSE 62; RESP 14; O2SAT 95
[2016-06-21] MEDS ORDERED: METO50TA3 PO (13:18)
[2016-06-21] MEDS ORDERED: OMEP40CA36 PO (13:18)
--- NOTE | 2016-06-22 11:54 | PATH ---
SURGICAL PATHOLOGY Attending Physician:Cipriano Murillo M.D. CASE STATUS: Signed Out PATIENT NAME: REJI VAZQUEZ PID: [id number] : 1940 DATE COLLECTED:06/20/2016 22:16 SPECIMEN: Gastric, Biopsy CLINICAL HISTORY: 1). MID GASTRIC BODY ULCERATED MASS BIOPSY FINAL DIAGNOSIS: 1.MID GASTRIC BODY ULCERATED MASS BIOPSY: ADENOCARCINOMA, MODERATELY TO POORLY-DIFFERENTIATED. THE NON-NEOPLASTIC GASTRIC MUCOSA SHOWS MILD CHRONIC INFLAMMATION, SEE COMMENT. ICD10 code C16 NOTE: Immunohistochemical stains for Helicobacter organisms and for HER-2 expression have been ordered and will be reported in an addendum. The finding of adenocarcinoma was reported by telephone to Aaliyah in Dr. Murillo' s office on 06/22/[address] Bueno. As part of a routine quality assurance monitor chassis, Dr. Naty Li has also reviewed this case and agrees with the diagnosis. GROSS DESCRIPTION: The specimen is received in one formalin filled container labeled with the patient's name, sublabeled "mid gastric body ulcerated mass" and consists of 4 portions of tissue which aggregate to 0.4 x 0.4 x 0.3 CM. The specimen is entirely submitted in one cassette. 06/21/2016 DAC MICRO DESCRIPTION: See diagnosis. ICD-9 CODES: CPT CODES: 1: 20091, 43897, 68072, 76186 PROCEDURE/ADDENDA: Immunohistochemistry SPI Interpretation {Not Entered} Results-Comments Immunohistochemical Results: The gastric mucosa was stained with immunohistochemical stains for Helicobacter organisms using polyclonal antibody to Helicobacter pylori. The positive control stained appropriately. Result: The patient tissue is negative for Helicobacter organisms. Interpretation: The gastric mucosa is negative for Helicobacter pylori by immunohistochemical stains. The gastric mucosa was also stained with Alcian blue stain to further evaluate for intestinal metaplasia. The Alcian blue stain is focally positive for intestinal metaplasia. The positive control stains appropriately. Interpretation: The gastric mucosa is focally positive for intestinal metaplasia by Alcian blue stain. The tumor is stained for mismatch repair proteins by immunohistochemical technique. Esophagogastric Junction HER2 Biomarker: Result: HER2 (by immunohistochemistry): Negative (score 0) Method: HER2 antibody 4B5, USFDA cleared This test was developed and its performance characteristics determined by [employer]. It has not been cleared or approved by the U. S. Food and Drug Administration. The FDA has determined that such clearance or approval is not necessary. This test is used for clinical purposes. It should not be regarded as investigational or for research. Electronically Signed Out Shalini Bueno MD Addendum SPI Addendum Diagnosis Slides reviewed at [facility] Pathology, by Dr. Mary Alice Francois Mid gastric body, ulcerated mass, biopsy: At least intramucosal adenocarcinoma, poorly-differentiated, arising in a background of intestinal metaplasia. See Comment. Negative (0) for Her2 protein over-expression by immunohistochemistry. Negative for Helicobacter pylori organisms by immunohistochemistry (with appropriate control). Comment: Sections are of gastric mucosa with focal intestinal metaplasia (highlighted on alcian blue stain). There is expansion of the lamina propria by an epithelioid neoplasm with a sheet-like growth pattern and focal poorly-formed glands (best seen on deeper levels). This case is compared with the patient' s previous ovarian endometrioid adenocarcinoma ([facility] [id number]) and the histologies are dissimilar. To further classify this neoplasm and rule out metastatic disease, a panel of immunohistochemistry is performed. The neoplastic cells are positive for keratin 7 (variable), MOC-31 (diffuse) and HerPar1 (weak) protein expression, are focally positive for mucin on mucicarmine stain, and are negative for keratin 20, c-kit (which highlights background mast cells), [place]-8 (which highlights tumor infiltrating lymphocytes) and arginase protein expression. DOG-1 is non-contributory due to extensive background staining. Overall, we agree with Dr. Bueno that these findings are most consistent with gastric primary adenocarcinoma; however metastases from other sites cannot be entirely excluded. Correlation with clinical, endoscopic and imaging findings is required. The Helicobacter pylori and Her2 immunostains as well as the reticulin stain were performed at the referring institution and are reviewed at [facility]. All other immunohistochemistry and the mucin stain were performed at [facility]. Addendum Comment Please see [facility] Pathology report [id number] for complete details. Electronically Signed Out Shalini Bueno MD Addendum SPI Addendum Diagnosis This addendum is issued to report the results of immunohistochemical analysis for alpha-fetoprotein (AFP), a test requested by Drs. Goins and Damion. The above diagnosis remains unchanged. Addendum Comment Per Dr. Cunha at [facility]: "The neoplastic epithelial cells are variably positive for AFP. In a lesion with overt glandular differentiation (based on histologic features, uniform MOC-31 immunoreactivity and focal mucicarmine positivity) identified in the context of focal intestinal metaplasia, this result does not change our original interpretation of adenocarcinoma. Recognizing that HepPar1 reactivity may simply be a manifestation of enteric differentiation (and we note that foci of intestinal metaplasia in this gastric biopsy are strongly HepPar1 positive), it is unclear that AFP immunoreactivity has any practical implications for either the pattern of differentiation or likely site of origin for this neoplasm. Alternatively, if HepPar1 positivity in this lesion is unrelated to enteric differentiation, a diagnosis of hepatoid adenocarcinoma might be entertained. Metastasis to this location also remains a consideration, as suggested in our original review. Because the biopsy is relatively small and hepatoid morphology is not clearly displayed in H&E stained sections, formal histologic classification of this adenocarcinoma may require evaluation of a larger sample". For complete details please see [facility] report [id number]. For additional information please see [facility] report [id number]. Electronically Signed Out Naty Li MD Electronically Signed Out Shalini Bueno MD [facility] Pathology [facility] [address], [place] [address] Technical component performed at [facility], [address], [place], [address]
[2016-07-03] MEDS ORDERED: ASPI325T32 PO (17:24)
[2016-07-03] MEDS ORDERED: CLON0.1T PO (17:24)
[2016-07-03] MEDS ORDERED: DILT180C83 PO (17:24)
[2016-07-26] MEDS ORDERED: HYDR-4003 PO (11:11)
[2016-08-22] MEDS ORDERED: ASPI325T32 PO (09:45)
[2016-08-22] MEDS ORDERED: OMEP40CA36 PO (09:45)
== END 2016-06-20 23:59 | disposition home or self-care (01) ==
LOC: END 14:48
PROVIDERS: ATTEND Internal Medicine
DX: C16.0 Malignant neoplasm of cardia (principal); K31.7 Polyp of stomach and duodenum; D64.9 Anemia, unspecified; I10 Essential (primary) hypertension; E78.5 Hyperlipidemia, unspecified; E11.9 Type 2 diabetes mellitus without complications; I48.0 Paroxysmal atrial fibrillation; E21.3 Hyperparathyroidism, unspecified; Z79.84 Long term (current) use of oral hypoglycemic drugs; Z85.43 Personal history of malignant neoplasm of ovary; Z79.82 Long term (current) use of aspirin
CPT/HCPCS: 43239; 88305; 88313; 88342; 88360; G0500; J2250; J3010; J7030

== ENCOUNTER 2016-08-23 09:30 | Day surgery (SDC) | payer MEDICARE, MEDICAID ==
[~2016-08-23 09:30] MED LIST changes: -AMOX-366 PO; +ASPI325T32 PO; +CLON0.1T PO; +DILT180C83 PO; +Dexamethasone 4 mg/mL Inj IVPUSH PRN; +EPHEDrine Sulfate 50 mg/mL Inj IVPUSH PRN; -HYDR-4003 PO; +HYDROmorphone 1 mg/mL Inj IVPUSH PRN; +Labetalol 5 mg/mL 4 mL Inj IV PRN; +Lactated Ringer's 1,000 ML IV ONE; +Lactated Ringer's 1,000 ML IV SCH; +Lactated Ringer's 500 ML IV PRN; -METO50TA3 PO; +MetoCLOpramide 5 mg/mL 2 mL Inj IVPUSH PRN; +OMEP40CA36 PO; +Ondansetron 2 mg/mL 2 mL Inj IVPUSH PRN; +Phenylephrine 10,000 mCg/mL Inj IVPUSH PRN; -Sodium Chloride LOK Flush 10 mL Syringe IV PRN; +hydrALAZINE 20 mg/mL Inj IVPUSH PRN
[2016-08-23] MEDS ORDERED: Ketamine 10 mg/mL 20 mL Inj ONE (09:31)
[2016-08-23] MEDS ORDERED: fentaNYL-PF 50 mCg/mL 2 mL Inj ONE (09:31)
[2016-08-23] MEDS ORDERED: Propofol 10,000 mCg/mL 20 mL Inj ONE (09:31)
[2016-08-23 10:05] VITALS: BP 148/67; PULSE 60; RESP 16; O2SAT 99
--- NOTE | 2016-08-23 11:06 | PCM.HPANE ---
Patient Data Date of Service: August 23, 2016 Surgeon Admitting Provider: Attending Provider:Anna Lopez MD Primary Care Physician:Tony Franz MD Other Provider:Han Alvarenga Anesthesia Reason for Visit [facility] Neoplasm Of Stomach Ht/WT & BMI Body Mass Index Allergies Coded Allergies: No Known Allergies (Verified Allergy, Unknown, 08/03/16) Past Anesthesia History Anesthesia History: Denies:: Abnormal Airway, Anesthesia Reactions, Difficult Intubation, Fam Anesthesia Reaction, Fam Malignant Hypertherm, Malignant Hyperthermia Diabetes History Hx Diabetes?: Yes Current Bedside Blood Glucose: 137 MRSA MRSA: No Medications Blood Thinner: Aspirin Last Dose Blood Thinner: August 22, 2016 Home Meds Incl Beta Jovana: No Active Scripts Lisinopril 10 Mg Sstble17 Mg PO DAILY #30 TABLET Ref 2 In Icelandic please Prov:Roberto Oro MD 04/21/16 Reported Medications Omeprazole 40 Mg Capsule.dr40 Mg PO BID Ref 0 08/22/16 Aspirin 325 Mg Hvienu241 Mg PO DAILY #1 BOTTLE 08/22/16 Clonidine 0.1 Mg Tablet0.1 Mg PO HS Ref 0 07/03/16 Diltiazem ER 180 Mg Cap.er.62e411 Mg PO DAILY Ref 0 07/03/16 Metformin ER 500 Mg Eowpsg074 Mg PO BID #30 01/04/16 Discontinued Reported Medications Hydrocodone-Acetaminophen 5-325 mg 1 Each Tablet1 Tablet PO Q4H PRN For Pain Ref 0 07/26/16 History History of ENT Problems?: Yes HEENT History: Positive for:: Cataracts Dysphagia (THYROID RELATED ) Denies:: Abnormal Airway Difficult Intubation Hearing Problem Denture Type: Partial- Upper Teeth Condition: Missing Teeth Hx of Heart Problems?: Yes Cardiovascular History: Positive for:: Atrial Fibrillation (PAROXYSMAL) Hypertension (pt on lisinopril, cardizem and clonidine) Denies:: AICD Cardiac Surgery Chest Pain Congestive Heart Failure Heart Murmur Irregular Heartbeat Pacemaker Thrombophlebitis Valvular Heart Disease Hx of Respiratory Problem?: Yes Respiratory History: Positive for:: Hemoptysis (06/15 before admission) Denies:: Asthma COPD Chest Surgery Cough Dyspnea Emphysema Pneumonia Tuberculosis Hx Neurologic Problems?: No Neurological History: Denies:: Alzheimer's Disease CVA Dementia Dizziness Headaches Parkinson's Disease Seizures Hx of GI Problems?: Yes Other GI Pertinent History: MALIGNANT NEOPLASM OF STOMACH Hx of Problems?: Yes Genitourinary History: Positive for:: Kidney Stones (renal stents ,maybe 5-6 yrs ago) Urinary Tract Infection Denies:: HX of Hemodialysis HX of Peritoneal Dialysis: No Female Hx: Denies:: Currently Endometriosis Pelvic Inflammatory Problems with Breasts? Hx Musculoskeletal Problems?: No Musculoskeletal History: Denies:: Back Injury Fibromyalgia Joint Replacement Musculoskeletal Trauma Hx of Psycho/Social Problems?: No Psycho Social History: Denies:: Anxiety Bipolar Disorder Hx Depression Suicide Attempt Hx Surgeries?: Yes (ureteral , HYST, oophorectomy) Hx Any Other Health Problems?: Yes Other History: Positive for:: Cancer (Ovarian) Hospitalization (ureteral stents 5-6 yrs ago) Thyroid Disease History Blood Transfusions: Positive for:: Blood Transfusions (after surgery for cancer dec 2015) Denies:: Blood Transfuse Reaction Hx Diabetes: YesBedside Blood Glucose: 137 Other Pertinent History: 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 Hx Alcohol Use: NoHx Substance Use: No Smoking Status: Never Smoker Have You Smoked inLast 12 mo: No Stop/Bang Treated for Sleep Apnea?: No Do You Have a CPAP Machine?: No S-Snoring: Do You Snore Loudly: No T-Tired: feel tired, fatigued: No O-Obsered: Observed not breath: No P-Blood Pressure: treated: Yes B- Body Mass Index > 35 kg/m2: No A- Age over 50: Yes N- Neck Large Circumference: No G- Gender Male: No JOZEF Total Score: 2 JOZEF Risk Assessment: Low Risk, <3 Yes Risk Assessment Category Category 1A: Patient has history of documented sleep apnea, and HAS NOT received any narcotic, sedative or anesthesia administration during this stay. Category 1B: Patient has history of documented sleep apnea, and HAS received any narcotic , sedative or anesthesia administration during this stay Category 2: Patient has SUSPECTED Obstructive Sleep Apnea, and HAS received any narcotic , sedative or anesthesia administration during this stay. Category 3: Patient has SUSPECTED Obstructive Sleep Apnea and HAS NOT received narcotic, sedative or anesthesia administration during this stay. Category 4: Outpatient in Procedural Areas with known sleep apnea or who screen positive for High Risk via the STOP/BANG questionnaire. Exam Exam Vital Signs Vital Signs Date Time Temp Pulse Resp B/P Pulse Ox O2 Delivery O2 Flow Rate FiO2 08/23/16 10:05 36.4 60 16 148/67 99 Room Air General Appearance: Alert, Oriented X3, Cooperative, No Acute Distress HEENT/AIRWAY: MP 2 Lungs: Clear to Auscultation, Normal Air Movement Heart: Exam Unremarkable, Regular Rate/Rhythm, No Murmurs/Rubs/Gallops Meds/Labs/Diagnostics Admission Meds Current Medications Lactated Ringer's (Lr) 1,000 ml @ 10 mls/hr Q24H ONCE IV Last administered on 08/23/16t 09:58; Start 08/23/16 at 06:00; Stop 08/24/16 at 05:59 Bedside Blood Glucose: 137 Plan Impression Patient chart reviewed, patient interviewed and anesthestic plan with risks, benefits, and alternatives discussed, and informed consent obtained. ASA Physical Status: ASA2 Mod Systemic Disease Anesthetic Plan: GA Bene/Risks/Altern/Consents: Yes HP Complete Prior to Induction: Yes Emiliano Ivey MD August 23, 2016 11:05
[2016-08-23 11:54] VITALS: BP 136/63; PULSE 98; RESP 16; O2SAT 100
[2016-08-23 12:12] VITALS: BP 131/59; PULSE 62; RESP 14; O2SAT 97
--- NOTE | 2016-08-23 14:01 | PCM.ANEP1 ---
Post Anesthesia Phase 1 PACU Phase 1 Assessment Date of Service: August 23, 2016 Vital Signs Vital Signs Date Time Temp Pulse Resp B/P Pulse Ox O2 Delivery O2 Flow Rate FiO2 08/23/16 12:12 62 14 131/59 97 Room Air 08/23/16 11:54 98 16 136/63 100 Room Air 08/23/16 10:05 36.4 60 16 148/67 99 Room Air Anesthetic Administered: GA Level of Alertness: Awake, talking Pain: No Nausea or Vomiting: No Cardiovascular Function and Hy: Yes Oxygen Delivery: Room Air Lungs: Clear to Auscultation, Normal Air Movement Complications: No Emiliano Ivey MD August 23, 2016 14:01
--- NOTE | 2016-08-23 14:02 | ENDO ---
[address] [address] ENDOSCOPY PROCEDURE PATIENT: REJI VAZQUEZ : 1940 MR#: [id number] ADMIT: 08/23/2016 JOB ID: [id number] DATE: 08/23/2016 PROCEDURE: Esophagogastroduodenoscopy. INDICATION: Patient with a history of gastric mass. Please see anesthesia report for details regarding ASA classification, Mallampati score and medications. INSTRUMENT USED: GIF H 190. PROCEDURE DETAILS: After informed consent was obtained, the patient was brought into the GI suite, where she was placed on oxygen via nasal cannula and monitored with continuous pulse oximeter, telemetry and blood pressure monitoring. A time-out was performed. Then, she was placed in the left lateral decubitus position and medications were administered for sedation. A bite block was placed. The standard EGD scope was inserted through the bite block and advanced without difficulty to the second portion of the duodenum. FINDINGS: 1. Normal appearing duodenal bulb, first and second portion. 2. Normal appearing pylorus. 3. Normal appearing antrum. 4. In the mid to distal gastric body, there was what appeared to be a healed ulcer. The area itself measured approximately 1.5 cm. The mucosa surrounding it was mildly edematous with mild erythema. Multiple random biopsies were obtained. 5. In the proximal gastric body and fundus, there were plaque-like lesions which were slightly pale and ranged in size from 3 mm to 5 mm. Multiple biopsies were obtained. 6. The GE junction appeared unremarkable. 7. Normal appearing esophagus. IMPRESSION: 1. Healed ulcer in the gastric body. Biopsies obtained. 2. Flat plaque-like lesions seen in the proximal gastric body and fundus. 3. Otherwise normal examination to second portion of duodenum. No mass lesions appreciated. RECOMMENDATIONS: 1. Await biopsy results. 2. Continue current medications. 3. Followup in GI clinic in 2-4 weeks. COMPLICATIONS: None. ESTIMATED BLOOD LOSS: Less than 5 mL.
--- NOTE | 2016-08-24 10:56 | PATH ---
SURGICAL PATHOLOGY Attending Physician:Agustín Rosas CASE STATUS: Signed Out PATIENT NAME: REJI VAZQUEZ PID: [id number] : 1940 DATE COLLECTED:08/23/2016 21:15 SPECIMEN: 1: Gastric, Biopsy 2: Gastric, Biopsy CLINICAL HISTORY: 1). GASTRIC BODY ULCER BIOPSY 2). PROXIMAL GASTRIC BODY BIOPSY FINAL DIAGNOSIS: 1.GASTRIC BODY ULCER BIOPSY: MODERATE CHRONIC ACTIVE GASTRITIS INVOLVING ANTRAL AND FUNDIC MUCOSA. Immunohistochemistry for Helicobacter pending, to be reported by addendum. Negative for intestinal metaplasia. Negative for dysplasia and malignancy. 2.PROXIMAL GASTRIC BODY BIOPSY: DIFFUSE MODERATE CHRONIC ACTIVE GASTRITIS INVOLVING FUNDIC MUCOSA. Immunohistochemistry for Helicobacter pending, to be reported by addendum. Focally positive for intestinal metaplasia. Negative for dysplasia and malignancy. ICD10 code K29.70 GROSS DESCRIPTION: The specimen is received in two formalin filled containers labeled with the patient's name. 1). The specimen is sublabeled "gastric body" and consists of 3 portions of tissue which aggregate to 0.3 x 0.3 x 0.2 CM. The specimen is entirely submitted in cassette 1A. 2). The specimen is sublabeled "proximal gastric" and consists of 4 portions of tissue which aggregate to 0.4 x 0.4 x 0.2 CM. The specimen is entirely submitted in cassette 2A. 08/23/2016 [facility] MICRO DESCRIPTION: See diagnosis. ICD-9 CODES: CPT CODES: 1: 28073, 04894 2: 43754, 87840 PROCEDURE/ADDENDA: Immunohistochemistry SPI Interpretation {Not Entered} Results-Comments Immunohistochemistry Results: 1.GASTRIC BODY ULCER BIOPSY: NEGATIVE FOR HELICOBACTER PYLORI BY IMMUNOHISTOCHEMISTRY. 2.PROXIMAL GASTRIC BODY BIOPSY: NEGATIVE FOR HELICOBACTER PYLORI BY IMMUNOHISTOCHEMISTRY. This test was developed and its performance characteristics determined by [facility]. It has not been cleared or approved by the U. S. Food and Drug Administration. The FDA has determined that such clearance or approval is not necessary. This test is used for clinical purposes. It should not be regarded as investigational or for research. Electronically Signed Out Jorge Green MD Electronically Signed Out Jorge Green MD [facility], [address], [place] [address] Technical component performed at [facility], [address], [place], [address]
== END 2016-08-23 23:59 | disposition home or self-care (01) ==
LOC: END 09:30
PROVIDERS: ATTEND Internal Medicine Gastroenterology
DX: K29.50 Unspecified chronic gastritis without bleeding (principal); K25.9 Gastric ulcer, unspecified as acute or chronic, without hemorrhage or perforation; C16.9 Malignant neoplasm of stomach, unspecified; R16.0 Hepatomegaly, not elsewhere classified; I10 Essential (primary) hypertension; I48.0 Paroxysmal atrial fibrillation; E11.9 Type 2 diabetes mellitus without complications; E03.9 Hypothyroidism, unspecified; E78.2 Mixed hyperlipidemia; Z79.82 Long term (current) use of aspirin; Z79.84 Long term (current) use of oral hypoglycemic drugs; Z85.43 Personal history of malignant neoplasm of ovary; Z87.442 Personal history of urinary calculi; Z90.710 Acquired absence of both cervix and uterus
CPT/HCPCS: 43239; J3010; J7120

== ENCOUNTER 2016-10-12 16:23 | Emergency (ER) | payer MEDICARE, MEDICAID ==
[~2016-10-12] VITALS: Ht 152.4 cm; Wt 77.3 kg
[~2016-10-12 16:23] MED LIST changes: -ASPI325T32 PO; -CLON0.1T PO; -Dexamethasone 4 mg/mL Inj IVPUSH PRN; -EPHEDrine Sulfate 50 mg/mL Inj IVPUSH PRN; -HYDROmorphone 1 mg/mL Inj IVPUSH PRN; -Labetalol 5 mg/mL 4 mL Inj IV PRN; -Lactated Ringer's 1,000 ML IV ONE; -Lactated Ringer's 1,000 ML IV SCH; -Lactated Ringer's 500 ML IV PRN; -MetoCLOpramide 5 mg/mL 2 mL Inj IVPUSH PRN; -OMEP40CA36 PO; -Ondansetron 2 mg/mL 2 mL Inj IVPUSH PRN; -Phenylephrine 10,000 mCg/mL Inj IVPUSH PRN; -fentaNYL-PF 50 mCg/mL 2 mL Inj IVPUSH PRN; -hydrALAZINE 20 mg/mL Inj IVPUSH PRN
[2016-10-12 16:28] VITALS: BP 176/79; PULSE 80; RESP 18; O2SAT 98
--- NOTE | 2016-10-12 16:41 | ED.REPORT ---
HPI-General Illness Date of Service Oct 12, 2016 ED Provider: Doug Marshall DO Patient is a 76 year old female with a history of gastric cancer, hypertension and diabetes who presents to the ED complaining of a mass in her abdomen onset a week. She reports that it is not painful and is able to have normal bowel movements but she is on a laxative. Patient denies vomiting or fever. The patient was referred to the ED by oncology for a CT of the abdomen. Nursing Notes Stated Complaint: BULDGE IN ABDOMEN Chief Complaint: Female Abdominal Pain Nursing Notes Reviewed: Yes Allergies: Coded Allergies: No Known Allergies (Verified Allergy, Unknown, 10/12/16) Scheduled Diltiazem ER (Diltiazem ER) 180 Mg Cap.er.24h 180 MG PO DAILY Lisinopril (Lisinopril) 10 Mg Tablet 10 MG PO DAILY In Croatian please Metformin ER (Metformin ER) 500 Mg Tablet 500 MG PO BID General Time Seen by MD: 16:40 Chief Complaint Other (abdominal mass) Hx Obtained From: Patient Sudden in Onset?: Yes Onset Occurred: 1 week ago Symptom Duration: Since onset Severity: Current: No pain currently Associated with: Denies: Fever, Vomiting Recent Healthcare: Recent doctor visit, Recent hospitalization Past Medical History Past Medical History Notes: PCP Dr. Franz Oncologist: Dr. 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 Hyperlipidemia HTN Osteoarthritis R hydroureter with right ureteral stent Constipation Hyperthyroid Reports: Hypertension Past Surgical History Reports: Hysterectomy Family History Noncontributory Smoking History Never Smoker Social History Alcohol Use: Denies alcohol use Other Social History: Good social support, Local resident Ambulatory Status Independent Review of Systems mass in abdomen Full Review of Systems Constitutional: Denies: Chills, Fever Respiratory: Denies: Non-productive cough, Shortness of breath GI: Denies: Abdominal pain, Constipation, Vomiting Complete sys rev & neg: except as marked. Physical Exam Vital Signs Vital Signs Date Time Temp Pulse Resp B/P Pulse Ox O2 Delivery O2 Flow Rate FiO2 10/12/16 16:28 36.9 80 18 176/79 98 Room Air Initial VS: Reviewed General/Constitutional: Awake, Alert, No acute distress Appearance / Presentation: Positive: Obese Head / Eyes: Atraumatic, Normocephalic, PERRL, EOMI Respiratory / Chest: Atraumatic, Breath sounds NL, Breath sounds = bilat, No respiratory distress Cardiovascular: Heart rate NL, Regular rhythm, Heart sounds NL Abdomen: Atraumatic, Soft midline surgical scar, healed right paramedian to scar on abdomen is distended when patient stands no obvious palpable hernia Skin: Atraumatic, Color NL, No rash, Warm, Dry Neurologic: Oriented X3, Speech NL, No motor deficits, No sensory deficits Psychiatric: Affect NL, Mood NL Re-Eval/Medical Decision Counseled Regarding: Diagnosis, Lab results Discharge & Departure Shift Change Sign-Out Patient Care Transferred: Yes Discussed Complaint(s): Yes Primary Impression: Abdominal discomfort Discharge Condition All VS Reviewed: Yes Condition: Stable Referrals: Tony Franz MD (PCP) Care Transferred to: Dr. Barrera Care Transferred at: 18:00 Ruben Attestation Portions of this note were transcribed by Carmen Fierro. I, Dr. Caity Perez personally performed the history, physical exam and medical decision-making; I reviewed and confirmed the accuracy of the information in the transcribed note. Signed by: Ruben Donohue, 10/12/16 and 1648 copies to: Tony Franz MD, Timothy S DO Oct 12, 2016 16:41 Anna Fierro Oct 12, 2016 16:49
[2016-10-12 18:52] LABS: BASOPHILS % (AUTO) 0.3 % (0-3); EOSINOPHILS % (AUTO) 3.5 % (0-5); MONOCYTES % (AUTO) 8.4 % (4-12); Mean Corpuscular Hemoglobin 28.8 pg (27.0-35.0); Mean Corpuscular Volume 89.4 fL (81-100); Platelet Count 213 bil/L (150-400)
--- NOTE | 2016-10-12 20:05 | DRSVH ---
PROCEDURE: CT ABDOMEN AND PELVIS WITH CONTRAST ([id number]) INDICATIONS: H/O CANCER, INCREASING ABDOMINAL SIZE, TECHNIQUE: After the administration of intravenous contrast, 5 mm thick sections acquired from the diaphragm to the symphysis. 5 mm coronal and sagittal reformats were acquired. For radiation dose reduction, the following was used: automated exposure control, adjustment of mA and/or kV according to patient jessica richard. COMPARISON: [facility], CT, CT BX ABD OR RETRO, 08/03/2016, 8:16. CT from 06/26/2016. FINDINGS: Image quality: Excellent. ABDOMEN: Lung bases: Lung bases are clear. Heart size is normal. Solid organs: Interval decrease in size of hypoechoic hepatic masses now predominantly in the posteri or right hepatic lobe. Contracted but otherwise radiographically normal gallbladder. The pancreas, sp elba, and adrenal glands are normal. Stable right-sided moderate hydronephrosis and ureterectasis wit h a ureteral stent. Proximal aspect of the stent is formed in the proximal/mid right ureter. Nonobstr ucting left 5 mm renal calculus. Stable mild left ureterectasis. Benign left renal cyst. Hysterectomy . Peritoneum and bowel: Postoperative changes in the colon. Moderate amount of stool in the colon. Othe rwise the colon is radiographically normal. Normal small bowel. The appendix is not identified. There are no secondary signs of acute appendicitis. Nodes and vessels: No retroperitoneal or mesenteric adenopathy by size criteria. Aorta and inferior vena cava are normal in size. Miscellaneous: Anterior abdominal wall hernias now contain nonobstructed loops of small bowel and tra nsverse colon (series 4 image 49). PELVIS: Genitourinary: Bladder wall thickness is normal. Miscellaneous: No inguinal hernias or adenopathy. Bones: No suspicious bony lesions. No vertebral body compression fractures. IMPRESSION: 1. New anterior abdominal wall hernias containing nonobstructed loops of bowel. 2. Stable moderate right hydronephrosis and ureterectasis with a right ureteral stent. The proximal a spect of the stent is formed within the proximal/mid ureter. 3. Decreased size of multiple hepatic masses consistent with metastasis previously biopsied. Dictated by: Gil Higginbotham M.D. on 10/12/2016 at 19:45 Approved by: Gil Higginbotham M.D. on 10/12/2016 at 19:57
== END 2016-10-12 20:58 | disposition home or self-care (01) ==
LOC: SED 16:23
DX: K43.9 Ventral hernia without obstruction or gangrene (principal); I10 Essential (primary) hypertension; E05.90 Thyrotoxicosis, unspecified without thyrotoxic crisis or storm; E11.9 Type 2 diabetes mellitus without complications; E78.5 Hyperlipidemia, unspecified; C16.9 Malignant neoplasm of stomach, unspecified; Z79.84 Long term (current) use of oral hypoglycemic drugs
CPT/HCPCS: 36415; 74177; 80053; 83735; 85025; 99284; Q9967

== ENCOUNTER 2016-11-27 08:29 | Day surgery (SDC) | payer MEDICARE, MEDICAID ==
[~2016-11-27] VITALS: Ht 152.4 cm; Wt 79.4 kg
[~2016-11-27 08:29] MED LIST changes: +0.9% Sodium Chloride 1,000 ML IV SCH; -DILT180C83 PO; +METO50TA3 PO; +OMEP40CA36 PO; +Sodium Chloride LOK Flush 10 mL Syringe IV PRN; +[UNRECOGNIZED DRUG - CODE] PO; +fentaNYL-PF 50 mCg/mL 2 mL Inj IVPUSH PRN
[2016-11-27 08:56] VITALS: BP 148/66; PULSE 61; RESP 14; O2SAT 98
--- NOTE | 2016-11-27 09:39 | PCM.ENDEGD ---
EGD Date of Service: Nov 27, 2016 Physician Cipriano Murillo MD Pre Procedure Diagnosis: Gastric cancer Post Procedure Dx & Findings: Small gastric ulcer residual site at the cancer fundic polyp Procedure Esophagogastroduodenoscopy PROCEDURE IN DETAIL: After proper sedation, Olympus video endoscope was inserted into patient's mouth and esophagus was successfully intubated. Scope introduced esophagus. Esophagus showed normal shiny whitish mucosa consistent with squamous cell component. Z line was intact at 35 cm from the incisors. The scope further advanced to the stomach. In the body of the stomach, there was a 3 cm residual spot appeared to be scarred down with some surrounding redness. Multiple biopsies obtained at the site. Patient had multiple flat fundic polyps and the size varied between 1 mm to couple centimeters. Sampling biopsies obtained. In the antrum, there was a small superficial ulcer which was biopsied. Cardia fundus body antrum pylorus were all visualized. Retroflexion was done. Stomach was easily inflated and deflatable using air. Scope further advanced to the distal duodenum. Duodenum revealed normal villous structures with normal appearing folds without any mass ulcer erosion. Impression Small gastric ulcer Prior site at the cancer fundic polyp Recommendation Avoid biopsy Prilosec. Presedation Assessment Risks and Benefits Informed consent was obtained from the patient after all risks and benefits including but not limited to drug reaction, infection, pain, bleeding, perforation, as well as alternatives were discussed. Patient monitoring Continuous pulse oximetry, cardiac monitoring, blood pressure monitoring, IV access, and oxygen at 2L per nasal cannula. Periprocedural Fentanyl: Fentanyl 100mcg Incrementally Midazolam: Midazolam 4mg Incrementally Complications There were no periprocedural complications identified. Post Procedure Plan Post Procedure Recommendations 1. Restrict activities today. 2. Resume normal activities in the morning. 3. Resume medications. 4. GERD behavioral modification: - Avoid fatty, acidic, spicy, large meals - Do not lie down after meals - Do not eat or drink anything for at least 2 1/2 hours before going to bed at night - Discontinue tobacco and alcohol - Decrease or avoid caffeine - Avoid chocolate and mints - Decrease weight - Avoid aspirin and non steroidal anti-inflammatory agents (NSAID) such as Aleve, Advil, Mobic, Naproxen, Ibuprofen, etc 5. Add proton pump inhibitor. Take 30 minutes before 1st meal of the day. 6. Patient informed of normal post procedure side effects as bloating, drowsiness, blood streaking in the stool 7. If gastric biopsy reveal H.pylori, continue with appropriate treatment 8. If small bowel biopsy reveals celiac, continue with appropriate treatment 9. Please don't hesitate to call me with any questions Cipriano Murillo MD Nov 27, 2016 09:39
[2016-11-27 09:40] VITALS: BP 142/73; PULSE 68; O2SAT 98
[2016-11-27 09:50] VITALS: BP 139/83; PULSE 71; RESP 16; O2SAT 95
[2016-11-27 10:00] VITALS: BP 163/76; PULSE 64; RESP 16; O2SAT 97
--- NOTE | 2016-11-30 13:39 | PATH ---
SURGICAL PATHOLOGY Attending Physician:Cipriano Murillo M.D. CASE STATUS: Signed Out PATIENT NAME: REJI VAZQUEZ PID: [id number] : 1940 DATE COLLECTED:11/27/2016 16:54 SPECIMEN: 1: Gastric, Biopsy 2: Gastric, Biopsy 3: Stomach, Polyp, Biopsy CLINICAL HISTORY: PHX OF STOMACH CANCER 1). GASTRIC ULCER BIOPSY 2). GASTRIC PRIOR CANCER SITE BIOPSY 3). GASTRIC FUNDUS POLYPS BIOPSY FINAL DIAGNOSIS: 1.GASTRIC ULCER, BIOPSY: GASTRIC ANTRAL MUCOSA WITH MILD ACTIVE GASTRITIS. Negative for Helicobacter organisms by immunohistochemistry. Negative for intestinal metaplasia. Negative for dysplasia and malignancy. 2.GASTRIC PRIOR CARCINOMA SITE, BIOPSY: GASTRIC BODY MUCOSA WITH CHRONIC GASTRITIS AND FOCAL INTESTINAL METAPLASIA. Negative for Helicobacter organisms by immunohistochemistry. Negative for dysplasia and malignancy. 3.GASTRIC FUNDUS POLYPS, BIOPSIES: GASTRIC BODY MUCOSA WITH CHRONIC GASTRITIS AND FEATURES OF HYPERPLASTIC GASTRIC POLYP. INTESTINAL METAPLASIA IN 2 OF 4 PIECES. Negative for dysplasia and malignancy. ICD10 K29.7 NOTE: 2. As part of a routine manager quality, Dr. Li has also reviewed part 2 of this case and agrees with the diagnosis. Additional step-sections are examined. GROSS DESCRIPTION: The specimen is received in three formalin filled containers labeled with the patient's name. 1). The specimen is labeled "gastric ulcer" and consists of 2 portions of shoe which aggregate to 0.2 x 0.2 x 0.2 CM. The specimen is entirely submitted in cassette 1A. 2). The specimen is labeled "gastric prior cancer site" and consists of 2 portions of tissue which aggregate to 0.3 x 0.2 x 0.2 CM. The specimen is entirely submitted in cassette 2A. 3). The specimen is labeled "gastric fundus polyps" and consists of 4 portions of tissue which aggregate to 0.2 x 0.2 x 0.2 CM. The specimen is entirely submitted in cassette 3A. 11/27/2016DC MICRO DESCRIPTION: 1. An immunohistochemical stain was performed to evaluate for Helicobacter organisms and is negative. A control stain showed appropriate reactivity. 2. An immunohistochemical stain was performed to evaluate for Helicobacter organisms and is negative. A control stain showed appropriate reactivity. This test was developed and its performance characteristics determined by [facility]. It has not been cleared or approved by the U. S. Food and Drug Administration. The FDA has determined that such clearance or approval is not necessary. This test is used for clinical purposes. It should not be regarded as investigational or for research. ICD-9 CODES: CPT CODES: 1: 12483, 30989 2: 84396, 16930 3: 22868 Electronically Signed Out Roberto Farris MD, Ph.D. [facility] Pathology [facility] [address], [place] [address] Technical component performed at [facility], [address], [place], [address]
== END 2016-11-27 23:59 | disposition home or self-care (01) ==
LOC: END 08:29
PROVIDERS: ATTEND Internal Medicine
DX: K29.50 Unspecified chronic gastritis without bleeding (principal); K31.7 Polyp of stomach and duodenum; K25.9 Gastric ulcer, unspecified as acute or chronic, without hemorrhage or perforation; I10 Essential (primary) hypertension; I48.0 Paroxysmal atrial fibrillation; E11.9 Type 2 diabetes mellitus without complications; E78.5 Hyperlipidemia, unspecified; E21.3 Hyperparathyroidism, unspecified; E03.9 Hypothyroidism, unspecified; R16.0 Hepatomegaly, not elsewhere classified; M19.90 Unspecified osteoarthritis, unspecified site; Z85.43 Personal history of malignant neoplasm of ovary; Z79.4 Long term (current) use of insulin; Z85.850 Personal history of malignant neoplasm of thyroid; Z79.84 Long term (current) use of oral hypoglycemic drugs; Z85.028 Personal history of other malignant neoplasm of stomach; Z85.42 Personal history of malignant neoplasm of other parts of uterus
CPT/HCPCS: 43239; G0500; J2250; J3010; J7030